=== PATIENT | male | born 1985 | race Two or more races ===

== ENCOUNTER 2017-06-12 11:52 | Emergency (ER) | payer OTHER ==
[~2017-06-12] VITALS: Ht 182.9 cm; Wt 115.5 kg
[2017-06-12 12:03] VITALS: BP 146/91
[2017-06-12] MEDS ORDERED: KETOROLAC 30 MG/1 ML ONE (12:29)
[2017-06-12] MEDS ORDERED: KETOROLAC 30 MG/1 ML IM ONE (12:30)
== END 2017-06-12 13:20 | disposition home or self-care (01) ==
LOC: EDBD 11:52 → ED 13:10
DX: S80.02XA Contusion of left knee, initial encounter (principal); F17.200 Nicotine dependence, unspecified, uncomplicated; W19.XXXA Unspecified fall, initial encounter; Y93.89 Activity, other specified; Y99.8 Other external cause status; Y92.099 Unspecified place in other non-institutional residence as the place of occurrence of the external cause
CPT/HCPCS: 73564; 96372; 99284; J1885

== ENCOUNTER 2020-05-25 21:06 | Emergency (ER) | payer BC, OTHER ==
[~2020-05-25] VITALS: Ht 182.9 cm; Wt 93.3 kg
--- NOTE | 2020-05-25 22:02 | NUR ---
pt to room from lobby
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
[2020-05-25 22:08] VITALS: BP 142/75
== END 2020-05-25 23:21 | disposition home or self-care (01) ==
LOC: ED 22:28
DX: S32.021A Stable burst fracture of second lumbar vertebra, initial encounter for closed fracture (principal); S32.028A Other fracture of second lumbar vertebra, initial encounter for closed fracture; V47.6XXA Car passenger injured in collision with fixed or stationary object in traffic accident, initial encounter; Y93.89 Activity, other specified; Y92.89 Other specified places as the place of occurrence of the external cause; Y99.8 Other external cause status
CPT/HCPCS: 72110; 99283